=== PATIENT | female | born 1985 | race Two or more races ===

== ENCOUNTER 2018-10-19 09:22 | Emergency (ER) | payer BC, OTHER ==
[2018-10-19 09:32] VITALS: TEMP 97.9; BMI 30.7
[2018-10-19] MEDS ORDERED: ONDANSETRON 4 MG/2 ML VIAL IVPUSH ONE (09:59)
[2018-10-19] MEDS ORDERED: SODIUM CHLORIDE 1,000 ML IV STA (09:59)
[2018-10-19] MEDS ORDERED: ONDANSETRON 4 MG/2 ML VIAL ONE (10:03)
--- NOTE | 2018-10-19 10:03 | PDOC ---
History of Present Illness - General Chief Complaint: Nausea/Vomiting Stated Complaint: NAUSEA/VOMITING (9 WKS ) Time Seen by Provider: 10/19/18 09:48 History Source: Patient Exam Limitations: No Limitations - History of Present Illness Initial Comments: 10/19/18 10:03 CHIEF COMPLAINT: Vomiting HISTORY OF PRESENT ILLNESS: This is an otherwise healthy 33-year-old , 9 weeks by ultrasound, who presents with nausea and vomiting. She has been following with her fiber analyst, Dr. Starks, for this and has already tried Diclegis and Reglan without relief. She reports vomiting all food and fluids that she has attempted to take in since yesterday. She denies abdominal pain, vaginal bleeding, dysuria, fevers/chills, or any other symptoms. Vital signs on arrival are notable for pulse of 107. Patient is a nonsmoker. She does not drink any alcohol. She works for [employer] in the [place]. REVIEW OF SYSTEMS: GENERAL/CONSTITUTIONAL: No fever or chills. No weakness. No weight change. HEAD, EYES, EARS, NOSE AND THROAT: No change in vision. No ear pain or discharge. No sore throat. CARDIOVASCULAR: No chest pain or palpitations. RESPIRATORY: No cough, wheezing, or shortness of breath. GASTROINTESTINAL: See HPI. GENITOURINARY: No dysuria, frequency, or change in urination. MUSCULOSKELETAL: No joint or muscle swelling or pain. No neck or back pain. SKIN: No rash or easy bruising. NEUROLOGIC: No headache, vertigo, loss of consciousness, or loss of sensation. PSYCHIATRIC: No depression or anxiety. ENDOCRINE: No increased thirst. No abnormal weight change. HEMATOLOGIC/LYMPHATIC: No anemia, easy bleeding, or history of blood clots. ALLERGIC/IMMUNOLOGIC: No hives or skin allergy. No latex allergy. PHYSICAL EXAM: GENERAL: The patient is awake, alert, and fully oriented, in no acute distress. HEAD: Normal with no signs of trauma. ENT: Pupils equal, round and reactive to light, extraocular movements intact, sclera anicteric, conjunctiva clear. Neck supple. LUNGS: Clear to auscultation bilaterally. Normal excursion. No respiratory distress or use of accessory muscles. CV: RRR, mildly tachycardic, S1/S2, no MRG. Cap refill < 2 sec. ABDOMEN: Soft, gravid uterus palpable below umbilicus, non-tender. EXTREMITIES: Normal range of motion, no edema. NEUROLOGICAL: Normal speech, normal gait. CN II-XII grossly intact. PSYCH: Normal mood, normal affect. SKIN: Warm, dry, normal turgor, no rashes or lesions noted. Past History - Past Medical History Allergies/Adverse Reactions: Allergies Allergy/AdvReac Type Severity Reaction Status Date / Time No Known Allergies Allergy Unverified 10/19/18 09:30 Home Medications: Ambulatory Orders Ondansetron [Zofran -] 4 mg PO TID PRN #21 tablet 10/19/18 - Suicide/Smoking/Psychosocial Hx Smoking History: Never smoked Hx Alcohol Use: No Drug/Substance Use Hx: No *Physical Exam - Vital Signs Last Vital Signs Temp Pulse Resp BP Pulse Ox 97.9 F 107 H 16 119/83 99 10/19/18 09:30 10/19/18 09:30 10/19/18 09:30 10/19/18 09:30 10/19/18 09:30 Moderate Sedation - Procedure Monitoring Vital Signs: Procedure Monitoring Vital Signs Temperature 97.9 F 10/19/18 09:30 Pulse Rate 107 H 10/19/18 09:30 Respiratory Rate 16 10/19/18 09:30 Blood Pressure 119/83 10/19/18 09:30 O2 Sat by Pulse Oximetry (%) 99 10/19/18 09:30 ED Treatment Course - LABORATORY CBC & Chemistry Diagram: 10/19/18 10:00 10/19/18 09:59 Medical Decision Making - Medical Decision Making 10/19/18 10:09 A/P: 33-year-old female with nausea/vomiting of . 1. Labs including CBC, CMP, UA 2. Zofran 4mg IVPB, NS 1L bolus 3. Discuss w/ Dr. Starks 10/19/18 13:01 Labs unremarkable. Patient feeling well and tolerating PO. Discussed with Dr. Starks - will rx Zofran, patient to follow up in one week. Return precautions reviewed. *DC/Admit/Observation/Transfer Diagnosis at time of Disposition: Hyperemesis gravidarum - Discharge Dispostion Disposition: HOME Condition at time of disposition: Improved Decision to Admit order: No - Prescriptions Prescriptions: Ondansetron [Zofran -] 4 mg PO TID PRN #21 tablet PRN Reason: nausea/vomiting - Referrals Referrals: Cirilo Starks MD [Primary Care Provider] - 7 days - Patient Instructions Printed Discharge Instructions: DI for Hyperemesis Gravidarum Additional Instructions: -Rest and stay well-hydrated -Take Zofran as needed for nausea/vomiting -Slowly introduce a bland diet -Follow up with Dr. Starks in one week; if symptoms continue, speak with him about the possibility of a home nursing service -Return here for any new or concerning symptoms - Post Discharge Activity
[2018-10-19 10:12] LABS: BASO % 0.4 % (0-2.0); EOS % 1.2 % (0-4.5); HEMOGLOBIN 13.6 GM/dL (10.7-15.3); LYMPH % 20.9 % (8-40); MCH 30.9 pg (25.7-33.7); MCHC 34.9 g/dl (32.0-36.0); MEAN CELL VOLUME 88.6 fl (80-96); MEAN PLT VOLUME 9.9 fl (7.5-11.1); MONO % 7.9 % (3.8-10.2); NEUT % 69.6 % (42.8-82.8); PLATELET COUNT 187 K/MM3 (134-434); RDW 13.7 % (11.6-15.6); WHITE BLOOD COUNT 7.5 K/mm3 (4.0-10.0)
[2018-10-19 11:02] LABS: ALBUMIN 3.7 g/dl (3.4-5.0); ALK PHOS 57 U/L (45-117); ANION GAP 7 MMOL/L (8-16); BILIRUBIN,TOTAL 0.3 mg/dL (0.2-1); BLOOD UREA NITROGEN 7 mg/dL (7-18); CALCIUM 9.1 mg/dL (8.5-10.1); CHLORIDE 102 mmol/L (98-107); CO2 26 mmol/L (21-32); CREATININE 0.6 mg/dL (0.55-1.3); GLUCOSE,RANDOM 78 mg/dL (74-106); MAGNESIUM 2.1 mg/dL (1.8-2.4); POTASSIUM 3.8 mmol/L (3.5-5.1); SGOT/AST 14 U/L (15-37); SGPT/ALT 20 U/L (13-61); SODIUM 135 mmol/L (136-145); TOT PROT 7.3 g/dl (6.4-8.2)
[2018-10-19] MEDS ORDERED: SODIUM CHLORIDE 1,000 ML IV SCH (11:15)
[2018-10-19] MEDS ORDERED: ACETAMINOPHEN 325 MG TABLET (FP) ONE (13:13)
[2018-10-19] MEDS ORDERED: MECLIZINE HCL 12.5 MG TABLET ONE (13:14)
[2018-10-19 13:29] VITALS: BP 114/68; PULSE 92
== END 2018-10-19 13:29 | disposition home or self-care (01) ==
LOC: JER 09:22
PROC: 3E033GC Introduction of Other Therapeutic Substance into Peripheral Vein, Percutaneous Approach (ICD-10-PCS; principal; 2018-10-19)
DX: O26.891 Other specified pregnancy related conditions, first trimester (principal); O21.0 Mild hyperemesis gravidarum; Z3A.09 9 weeks gestation of pregnancy
CPT/HCPCS: 36415; 80053; 83735; 85025; 99282-25; J7030

== ENCOUNTER 2018-10-29 19:53 | Emergency (ER) | payer BC, OTHER ==
[2018-10-29 20:03] VITALS: TEMP 98.3; BMI 30.7
--- NOTE | 2018-10-29 20:43 | PDOC ---
History of Present Illness - History of Present Illness Initial Comments: 10/29/18 20:43 Ms. Santos is a 11 weeks 33 yo female w/ no significant pmh who presents for evaluation of 1 day history of nausea and vomiting. Patient reports this is similar to previous presentation 2 weeks ago. Patient has been taking diclegis TID proscribed by her TANK TESTER however reports minimal relief only. Denies any other symptoms at this time. The patient denies chest pain, shortness of breath, headache and dizziness. Denies fever, chills, diarrhea and constipation. Denies dysuria, frequency, urgency and hematuria. <Salvatore Robin - Last Filed: 10/30/18 00:22> <Benita Whyte - Last Filed: 10/30/18 01:40> - General Chief Complaint: Nausea/Vomiting Stated Complaint: 11 WEEKS , SICK Time Seen by Provider: 10/29/18 20:42 Past History - Past Medical History COPD: No - Suicide/Smoking/Psychosocial Hx Smoking History: Never smoked Have you smoked in the past 12 months: No Information on smoking cessation initiated: No Hx Alcohol Use: No Drug/Substance Use Hx: No <Salvatore Robin - Last Filed: 10/30/18 00:22> <Benita Whyte - Last Filed: 10/30/18 01:40> - Past Medical History Allergies/Adverse Reactions: Allergies Allergy/AdvReac Type Severity Reaction Status Date / Time No Known Allergies Allergy Unverified 10/19/18 09:30 Review of Systems - Review of Systems Comments:: 10/29/18 20:43 GENERAL/CONSTITUTIONAL: No fever or chills. No weakness. HEAD, EYES, EARS, NOSE AND THROAT: No change in vision. No ear pain or discharge. No sore throat. CARDIOVASCULAR: No chest pain or shortness of breath RESPIRATORY: No cough, wheezing, or hemoptysis. GASTROINTESTINAL: +Nausea and vomiting as described. No diarrhea or constipation. GENITOURINARY: No dysuria, frequency, or change in urination. MUSCULOSKELETAL: No joint or muscle swelling or pain. No neck or back pain. SKIN: No rash NEUROLOGIC: No headache, vertigo, loss of consciousness, or change in strength/ sensation. ENDOCRINE: No increased thirst. No abnormal weight change HEMATOLOGIC/LYMPHATIC: No anemia, easy bleeding, or history of blood clots. ALLERGIC/IMMUNOLOGIC: No hives or skin allergy. <Salvatore Robin - Last Filed: 10/30/18 00:22> *Physical Exam - Vital Signs Last Vital Signs Temp Pulse Resp BP Pulse Ox 98.3 F 98 H 16 124/82 100 10/29/18 20:01 10/29/18 20:01 10/29/18 20:01 10/29/18 20:01 10/29/18 20:01 - Physical Exam Comments: 10/29/18 20:43 GENERAL: Awake, alert, and fully oriented, in no acute distress HEAD: No signs of trauma, normocephalic, atraumatic EYES: PERRLA, EOMI, sclera anicteric, conjunctiva clear ENT: Auricles normal inspection, hearing grossly normal, nares patent, oropharynx clear without exudates. Moist mucosa NECK: Normal ROM, supple, no lymphadenopathy, JVD, or masses LUNGS: No distress, speaks full sentences, clear to auscultation bilaterally HEART: Regular rate and rhythm, normal S1 and S2, no murmurs, rubs or gallops, peripheral pulses normal and equal bilaterally. ABDOMEN: Soft, nontender, normoactive bowel sounds. No guarding, no rebound. No masses EXTREMITIES: Normal inspection, Normal range of motion, no edema. No clubbing or cyanosis. NEUROLOGICAL: Cranial nerves II through XII grossly intact. Normal speech, normal gait, no focal sensorimotor deficits SKIN: Warm, Dry, normal turgor, no rashes or lesions noted. <Salvatore Robin - Last Filed: 10/30/18 00:22> - Vital Signs Last Vital Signs Temp Pulse Resp BP Pulse Ox 98.3 F 86 20 128/80 100 10/29/18 20:01 10/29/18 23:09 10/29/18 23:09 10/29/18 23:09 10/29/18 23:09 <Benita Whyte - Last Filed: 10/30/18 01:40> Moderate Sedation - Procedure Monitoring Vital Signs: Procedure Monitoring Vital Signs Temperature 98.3 F 10/29/18 20:01 Pulse Rate 98 H 10/29/18 20:01 Respiratory Rate 16 10/29/18 20:01 Blood Pressure 124/82 10/29/18 20:01 O2 Sat by Pulse Oximetry (%) 100 10/29/18 20:01 <Salvatore Robin - Last Filed: 10/30/18 00:22> - Procedure Monitoring Vital Signs: Procedure Monitoring Vital Signs Temperature 98.3 F 10/29/18 20:01 Pulse Rate 86 10/29/18 23:09 Respiratory Rate 20 10/29/18 23:09 Blood Pressure 128/80 10/29/18 23:09 O2 Sat by Pulse Oximetry (%) 100 10/29/18 23:09 <Benita Whyte - Last Filed: 10/30/18 01:40> ED Treatment Course - LABORATORY CBC & Chemistry Diagram: 10/29/18 21:30 10/29/18 21:30 <Salvatore Robin - Last Filed: 10/30/18 00:22> - LABORATORY CBC & Chemistry Diagram: 10/29/18 21:30 10/29/18 21:30 - ADDITIONAL ORDERS Additional order review: Laboratory Results 10/29/18 10/29/18 21:45 21:30 Sodium 135 L Potassium 3.8 Chloride 102 Carbon Dioxide 25 Anion Gap 8 BUN 9 Creatinine 0.5 L Creat Clearance w eGFR > 60 Random Glucose 83 Calcium 8.9 Total Bilirubin 0.4 AST 15 ALT 20 Alkaline Phosphatase 53 Total Protein 7.3 Albumin 3.7 Urine Color Yellow Urine Appearance Clear Urine pH 5.0 Ur Specific Braman 1.027 Urine Protein 1+ H Urine Glucose (UA) Negative Urine Ketones 2+ H Urine Blood Negative Urine Nitrite Negative Urine Bilirubin Negative Urine Urobilinogen Negative Ur Leukocyte Esterase Negative Urine WBC (Auto) 3 Urine RBC (Auto) 1 Ur Epithelial Cells Rare Urine Bacteria Rare Urine Mucus Many 10/29/18 21:30 RBC 4.40 MCV 89.2 MCHC 35.0 RDW 13.5 MPV 10.0 Neutrophils % 80.5 Lymphocytes % 13.6 D Monocytes % 4.9 Eosinophils % 0.7 Basophils % 0.3 - Medications Given in the ED: ED Medications Discontinued Medications Generic Name Dose Route Start Last Admin Trade Name Freq PRN Reason Stop Dose Admin Sodium Chloride 1,000 mls @ 1,000 mls/hr 10/29/18 20:50 10/29/18 21:15 Normal Saline - IV 10/29/18 21:49 1,000 mls/hr ASDIR STA Administration Metoclopramide HCl 10 mg 10/29/18 20:50 10/29/18 21:20 Reglan Injection - IVPUSH 10/29/18 20:51 10 mg ONCE ONE Administration Ondansetron HCl 4 mg 10/30/18 00:27 10/30/18 01:06 Zofran Injection IVPUSH 10/30/18 00:28 4 mg ONCE ONE Administration <Benita Whyte - Last Filed: 10/30/18 01:40> Medical Decision Making - Medical Decision Making 10/29/18 22:24 Ms. Santos is a 33 yo female w/ pmh as described who presents for evaluation of symptoms concerning for hyperemesis gravidarum. Patient otherwise well appearing however reports she has not been able to keep food down since last night. Workup started with CBC/CMP/UA/Urine culture and US as well as 1L NS. Labs significant for ketones in urine as below. D5LR 2L added on accordingly. 10/29/18 23:28 US negative for acute process. Patient currently receiving hydration. 10/30/18 00:22 Patient alert and oriented with relief from symptoms. Discharging to home. Laboratory Results - last 24 hr 10/29/18 10/29/18 10/29/18 21:30 21:30 21:45 WBC 9.2 RBC 4.40 Hgb 13.7 Hct 39.3 MCV 89.2 MCH 31.2 MCHC 35.0 RDW 13.5 Plt Count 174 MPV 10.0 Absolute Neuts (auto) 7.4 Neutrophils % 80.5 Lymphocytes % 13.6 D Monocytes % 4.9 Eosinophils % 0.7 Basophils % 0.3 Nucleated RBC % 0 Sodium 135 L Potassium 3.8 Chloride 102 Carbon Dioxide 25 Anion Gap 8 BUN 9 Creatinine 0.5 L Creat Clearance w eGFR > 60 Random Glucose 83 Calcium 8.9 Total Bilirubin 0.4 AST 15 ALT 20 Alkaline Phosphatase 53 Total Protein 7.3 Albumin 3.7 Urine Color Yellow Urine Appearance Clear Urine pH 5.0 Ur Specific Braman 1.027 Urine Protein 1+ H Urine Glucose (UA) Negative Urine Ketones 2+ H Urine Blood Negative Urine Nitrite Negative Urine Bilirubin Negative Urine Urobilinogen Negative Ur Leukocyte Esterase Negative Urine WBC (Auto) 3 Urine RBC (Auto) 1 Ur Epithelial Cells Rare Urine Bacteria Rare Urine Mucus Many <Salvatore Robin Last Filed: 10/30/18 00:22> *DC/Admit/Observation/Transfer <Salvatore Robin - Last Filed: 10/30/18 00:22> - Discharge Dispostion Decision to Admit order: No <Benita Whyte - Last Filed: 10/30/18 01:40> Diagnosis at time of Disposition: Hyperemesis gravidarum - Discharge Dispostion Disposition: HOME Condition at time of disposition: Stable - Patient Instructions Printed Discharge Instructions: DI for Hyperemesis Gravidarum Additional Instructions: You were evaluated today in the ER for your nausea and vomiting. We hydrated you with 1 L normal saline and 2 L D5/LR fluid. No concerning findings were found at this time. Please follow-up with TANK TESTER later this week for further evaluation. Return to ER if any fever, chills, inability to tolerate food/drink , or other concerning symptoms.
[2018-10-29] MEDS ORDERED: METOCLOPRAMIDE HCL INJECTION 10 MG/2 ML VIAL IVPUSH ONE (20:50)
[2018-10-29] MEDS ORDERED: SODIUM CHLORIDE 1,000 ML IV STA (20:50)
[2018-10-29] MEDS ORDERED: METOCLOPRAMIDE HCL INJECTION 10 MG/2 ML VIAL ONE (21:20)
[2018-10-29 21:48] LABS: BASO % 0.3 % (0-2.0); EOS % 0.7 % (0-4.5); HEMATOCRIT 39.3 % (32.4-45.2); HEMOGLOBIN 13.7 GM/dL (10.7-15.3); LYMPH % 13.6 % (8-40); MCH 31.2 pg (25.7-33.7); MEAN CELL VOLUME 89.2 fl (80-96); MONO % 4.9 % (3.8-10.2); NEUT % 80.5 % (42.8-82.8); PLATELET COUNT 174 K/MM3 (134-434); RDW 13.5 % (11.6-15.6); WHITE BLOOD COUNT 9.2 K/mm3 (4.0-10.0)
[2018-10-29 21:53] LABS: URINE APPEARANCE CLEAR; URINE BILIRUBIN NEGATIVE (<2.0 mg/dL); URINE COLOR YELLOW; URINE GLUCOSE (UA) NEGATIVE (NEGATIVE); URINE KETONE 2+ (NEGATIVE); URINE LEUK ESTERASE NEGATIVE (NEGATIVE); URINE NITRITE NEGATIVE (NEGATIVE); URINE PROTEIN 1+ (NEGATIVE); URINE UROBILINOGEN NEGATIVE mg/dL (0.2-1.0)
[2018-10-29 22:06] LABS: EPI CELLS RARE /HPF (FEW); URINE BACTERIA RARE /hpf (NONE SEEN); URINE MUCUS MANY
[2018-10-29 22:08] LABS: ALBUMIN 3.7 g/dl (3.4-5.0); ALK PHOS 53 U/L (45-117); ANION GAP 8 MMOL/L (8-16); BILIRUBIN,TOTAL 0.4 mg/dL (0.2-1); BLOOD UREA NITROGEN 9 mg/dL (7-18); CALCIUM 8.9 mg/dL (8.5-10.1); CHLORIDE 102 mmol/L (98-107); CO2 25 mmol/L (21-32); CREATININE 0.5 mg/dL (0.55-1.3); GLUCOSE,RANDOM 83 mg/dL (74-106); POTASSIUM 3.8 mmol/L (3.5-5.1); SGOT/AST 15 U/L (15-37); SGPT/ALT 20 U/L (13-61); SODIUM 135 mmol/L (136-145); TOT PROT 7.3 g/dl (6.4-8.2)
--- NOTE | 2018-10-29 22:17 | PDOC ---
Attending Attestation - Resident Resident Name: Salvatore Robin - ED Attending Attestation I have performed the following: I have examined & evaluated the patient, The case was reviewed & discussed with the resident, I agree w/resident's findings & plan - Medical Decision Making 10/29/18 22:37 Patient Name: GEORGETTE VAZQUEZ THIS IS A PRELIMINARY REPORT FROM IMAGING LITHOGRAPHIC PHOTOGRAPHER APPRENTICE DATE OF SERVICE: 2018-10-29 21:45:53 IMAGES: 53 EXAM: <14WKS US HISTORY: with nausea and vomiting COMPARISON: None. FINDINGS: There is a single live intrauterine gestation with heart rate averaging 153 bpm. Approximate age by composite ultrasound measurements is 11 weeks, 1 day A yolk sac is present Amniotic fluid volume is subjectively adequate No evidence of subchorionic hemorrhage Normal ovaries without evidence of torsion No adnexal masses visualized No free fluid <Benita Whyte - Last Filed: 10/29/18 22:37> - HPI HPI: 10/29/18 22:17 The patient is a 33 year old 11 weeks female , with no significant past medical history, who presents to the emergency department with, 1 day of nausea and vomiting. As per patient, she was seen in the ER 2 weeks ago for similar symptoms. She notes her PREDATORY ANIMAL TRAPPER prescribed diclegis TID, with minimal relief prompting her visit to the ER. She denies recent fevers, chills, headache or dizziness. She denies recent diarrhea or constipation. She denies recent dysuria, frequency, urgency or hematuria. She denies recent chest pain or shortness of breath. Allergies: NKDA PREDATORY ANIMAL TRAPPER: Dr. Starks - Physicial Exam PE: 10/29/18 23:29 GENERAL: Awake, alert, and fully oriented, in no acute distress HEAD: No signs of trauma ENT: Auricles normal inspection, hearing grossly normal, nares patent, oropharynx clear without exudates. Moist mucosa NECK: Normal ROM, supple, no lymphadenopathy, JVD, or masses LUNGS: Breath sounds equal, clear to auscultation bilaterally. No wheezes, and no crackles HEART: Regular rate and rhythm, normal S1 and S2, no murmurs, rubs or gallops ABDOMEN: Soft, nontender, normoactive bowel sounds. No guarding, no rebound. No masses EXTREMITIES: Normal range of motion, no edema. No clubbing or cyanosis. No cords, erythema, or tenderness NEUROLOGICAL: Cranial nerves II through XII grossly intact. Normal speech, normal gait SKIN: Warm, Dry, normal turgor, no rashes or lesions noted. - Medical Decision Making 10/29/18 22:31 EXAM: <14WKS US HISTORY: with nausea and vomiting COMPARISON: None. FINDINGS: There is a single live intrauterine gestation with heart rate averaging 153 bpm. Approximate age by composite ultrasound measurements is 11 weeks, 1 day A yolk sac is present Amniotic fluid volume is subjectively adequate No evidence of subchorionic hemorrhage Normal ovaries without evidence of torsion No adnexal masses visualized No free fluid Read by: Montana Walton MD <Gómez Woods - Last Filed: 10/29/18 23:29> Attestations - Attestations 10/29/18 22:17 Documentation prepared by Gómez Woods, acting as medical management specialist for Benita Whyte MD. <Gómez Woods - Last Filed: 10/29/18 23:29>
[2018-10-29] MEDS ORDERED: DEXTROSE 5%-LACTATED RINGERS 1,000 ML IV SCH ×2 (22:30)
[2018-10-29 23:12] VITALS: BP 128/80; PULSE 86
[2018-10-30] MEDS ORDERED: ONDANSETRON 4 MG/2 ML VIAL IVPUSH ONE (00:27)
[2018-10-30] MEDS ORDERED: ONDANSETRON 4 MG/2 ML VIAL ONE (01:04)
== END 2018-10-30 01:46 | disposition home or self-care (01) ==
LOC: JER 19:53
PROC: 3E033GC Introduction of Other Therapeutic Substance into Peripheral Vein, Percutaneous Approach (ICD-10-PCS; principal; 2018-10-29)
PROC: 3E0337Z Introduction of Electrolytic and Water Balance Substance into Peripheral Vein, Percutaneous Approach (ICD-10-PCS; 2018-10-29)
DX: O26.891 Other specified pregnancy related conditions, first trimester (principal); Z3A.11 11 weeks gestation of pregnancy; O21.0 Mild hyperemesis gravidarum
CPT/HCPCS: 36415; 76801-TC; 80053; 81003; 81015; 85025; 87086; 99284-25; J7030

== ENCOUNTER 2018-11-08 12:45 | Emergency (ER) | payer BC, OTHER ==
[2018-11-08 12:48] VITALS: TEMP 97.3; BMI 29.9
--- NOTE | 2018-11-08 13:33 | PDOC ---
History of Present Illness - General Chief Complaint: Nausea/Vomiting Stated Complaint: NAUSEA/VOMITING (12 WKS PREG) Time Seen by Provider: 11/08/18 13:30 History Source: Patient Exam Limitations: No Limitations - History of Present Illness Initial Comments: Pt is a 33 yo F, with PMH of ASD (corrective heart surgery age 10), G1PO (@12 weeks), who is presenting with complaints of nausea and NBNB emesis, which has worsened over the past 5 days. Pt states she has been to her OB and multiple ERs ([place], [facility], urgent care) over the past few days, and has been treated with IV hydration and anti-emetic medications. Pt has tried Diclegis, reglan, and zofran at home, but has not been able to keep it down. Pt has not been able to eat or drink since yesterday without vomiting. Pt states the vomiting has been associated with palpitations, but no LOC. Pt states she has been constipated for a few days, but that has been going on over the past few weeks with the . Pt denies any fevers/chills, headache, vision changes, syncope, chest pain, SOB, abdominal pain, vaginal discharge/vaginal bleeding, urinary symptoms, diarrhea, or leg swelling. Social: Pt denies any cigarette, alcohol, or drug use. Pt denies any recent travel or sick contacts. Surgical: cardiac, ASD repair. Family: no relevant history. 11/08/18 14:19 Past History - Travel Traveled outside of the country in the last 30 days: No Close contact w/someone who was outside of country & ill: No - Past Medical History Allergies/Adverse Reactions: Allergies Allergy/AdvReac Type Severity Reaction Status Date / Time No Known Allergies Allergy Unverified 11/08/18 12:48 Home Medications: Ambulatory Orders Ondansetron [Zofran Odt -] 4 mg GT BID PRN #20 tab.rapdis 11/08/18 Cardiac Disorders: Yes (ASD) Hx Myocardial Infarction: No Diabetes: No GI Disorders: No HTN: No Hypercholesterolemia: No Seizures: No - Surgical History Cardiac Surgery: Yes - Suicide/Smoking/Psychosocial Hx Smoking History: Never smoked Have you smoked in the past 12 months: No Hx Alcohol Use: No Drug/Substance Use Hx: No Review of Systems - Review of Systems Able to Perform ROS?: Yes Is the patient limited Latvian proficient: No Constitutional: Yes: Weight Stable. No: Chills, Diaphoresis, Fever, Loss of Appetite, Malaise HEENTM: No: Blurred Vision, Double Vision, Nose Congestion, Throat Swelling Respiratory: No: Cough, Shortness of Breath Cardiac (ROS): Yes: See HPI, Palpitations. No: Chest Pain, Edema, Irregular Heart Rate, Lightheadedness, Syncope, Chest Tightness ABD/GI: Yes: See HPI, Constipated, Nausea, Poor Appetite, Poor Fluid Intake, Vomiting. No: Diarrhea, Indigestion, Abdominal cramping : No: Burning, Dysuria, Discharge, Frequency, Flank Pain, Hematuria, Incontinence, Pain, Urgency Musculoskeletal: No: Back Pain, Joint Pain Integumentary: No: Rash Neurological: No: Headache, Numbness, Seizure, Tremors, Weakness, Unsteady Gait , Ataxia, Dizziness Psychiatric: No: Sleep Pattern Change, Change in Appetite Endocrine: No: Increased Urine, Change in Weight Hematologic/Lymphatic: No: Anemia, Blood Clots, Easy Bleeding, Easy Bruising All Other Systems: Reviewed and Negative *Physical Exam - Vital Signs Last Vital Signs Temp Pulse Resp BP Pulse Ox 97.3 F L 88 18 120/81 97 11/08/18 12:45 11/08/18 12:45 11/08/18 12:45 11/08/18 12:45 11/08/18 12:45 - Physical Exam General Appearance: Yes: Nourished, Appropriately Dressed. No: Apparent Distress HEENT: positive: EOMI, KRISTINA, Normal ENT Inspection, Normal Voice, Pharynx Normal , Hearing Grossly Normal. negative: Scleral Icterus (R), Scleral Icterus (L), Pharyngeal Erythema, Tonsillar Exudate, Tonsillar Erythema, Nasal Congestion, Rhinorrhea Neck: positive: Trachea midline, Normal Thyroid, Supple. negative: Tender, Rigid, Lymphadenopathy (R), Lymphadenopathy (L), Rigidity Respiratory/Chest: positive: Lungs Clear, Normal Breath Sounds. negative: Chest Tender, Respiratory Distress, Accessory Muscle Use, Crackles, Wheezing Cardiovascular: positive: Regular Rhythm, Regular Rate, S1, S2. negative: Edema , JVD, Murmur Vascular Pulses: Carotid (R): 4+, Carotid (L): 4+ Gastrointestinal/Abdominal: positive: Normal Bowel Sounds, Soft, Protuberent ( , fundal height appropriate). negative: Tender, Flat, Organomegaly, Pulsatile Mass, Distended, Guarding, Rebound Rectal Exam: positive: deferred Lymphatic: negative: Adenopathy, Tenderness Musculoskeletal: positive: Normal Inspection. negative: CVA Tenderness Extremity: positive: Normal Capillary Refill, Normal Inspection, Normal Range of Motion, Pelvis Stable. negative: Tender, Pedal Edema, Calf Tenderness Integumentary: positive: Normal Color, Dry, Warm. negative: Jaundice, Clammy, Diaphoresis, Rash, Other (no decreased skin turgor, moist oral mucosa) Neurologic: positive: [employer] II-XII NML intact, Fully Oriented, Alert, Normal Mood/ Affect, Normal Response, Motor Strength 5/5 Moderate Sedation - Procedure Monitoring Vital Signs: Procedure Monitoring Vital Signs Temperature 97.3 F L 11/08/18 12:45 Pulse Rate 88 11/08/18 12:45 Respiratory Rate 18 11/08/18 12:45 Blood Pressure 120/81 11/08/18 12:45 O2 Sat by Pulse Oximetry (%) 97 11/08/18 12:45 ED Treatment Course - LABORATORY CBC & Chemistry Diagram: 11/08/18 14:09 11/08/18 14:09 Medical Decision Making - Medical Decision Making Pt was seen at bedside, also will be seen by attending Dr. Thomas. Pt presenting with complaints of nausea and NBNB emesis, which has worsened over the past 5 days. Pt states she has been to her OB and multiple ERs ([place], [facility], urgent care) over the past few days, and has been treated with IV hydration and anti- emetic medications. Pt has tried Diclegis, reglan, and zofran at home, but has not been able to keep it down. Pt has not been able to eat or drink since yesterday without vomiting. Pt states the vomiting has been associated with palpitations, but no LOC. Pt states she has been constipated for a few days, but that has been going on over the past few weeks with the . Pt denies any fevers/chills, headache, vision changes, syncope, chest pain, SOB, abdominal pain, vaginal discharge/vaginal bleeding, urinary symptoms, diarrhea, or leg swelling. Vitals stable, afebrile. PE showed clear heart and lung sounds, not tachycardic on exam, normal extremity pulses. No abdominal or CVA tenderness, fundal height appropriate for age. Oral mucosa moist, no decreased skin turgor (likely from recent IV hydration). Benign PE. Considering hyperemesis gravidum vs viral/bacterial enteritis vs obstruction. Limited concern for viral illness, as pt afebrile, no diarrhea or other associated symptoms. Pt is also constipated, but more likely hyperemesis vs obstruction, with constipation likely 2/2 . Ordered work-up including CBC, CMP, Mg, UA, and urine culture. Provided 1 L IV NS and 4 mg IV zofran for improvement of nausea and decreased PO tolerance. Will continue to reassess pt and monitor for symptomatic improvement. 11/08/18 13:44 Labs sent and pending. Pt providing urine for UA. 11/08/18 14:18 CBC and CMP generally WNL. UA: 2+ ketones, no urinary tract infection. Pt has had no further emesis since receiving the zofran. 11/08/18 15:07 Pt still complaining of nausea. Providing additional 4 mg IV zofran. Will challenge pt with PO fluid intake. 11/08/18 15:43 Pt improved after second dose of zofran, able to tolerate PO fluid intake. Sent 4 mg ODT zofran to pt pharmacy. Considering normal lab results, pt can be discharged to home with follow-up. Pt advised to follow-up with PCP and OB in 1-2 days. Strict return precautions provided with pt understanding. 11/08/18 16:16 *DC/Admit/Observation/Transfer Diagnosis at time of Disposition: Hyperemesis gravidarum - Discharge Dispostion Disposition: HOME Condition at time of disposition: Improved Decision to Admit order: No - Prescriptions Prescriptions: Ondansetron [Zofran Odt -] 4 mg GT BID PRN #20 tab.rapdis PRN Reason: Nausea And/Or Vomiting - Referrals - Patient Instructions Printed Discharge Instructions: DI for Hyperemesis Gravidarum Additional Instructions: You were seen in the ER today for nausea and vomiting. The results of your labs and imaging today were normal. Please follow-up with your primary care doctor and [facility] within 1-2 days to discuss your visit and make sure your symptoms have improved. Please return to the ER if you have any abdominal pain/cramping or vaginal bleeding, development of fevers or chills, loss of consciousness, palpitations, inability to tolerate food or fluids, or any other concerns. I have sent zofran tablets for nausea which you can place under the tongue ( instead of swallowing the pill). This pill should help with your nausea. Please also attempt to continue with fluids (gatorade, pedialyte) and bland food as tolerated. Print Language: KHMER - Post Discharge Activity
[2018-11-08] MEDS ORDERED: ONDANSETRON 4 MG/2 ML VIAL IVPUSH ONE ×2 (13:44→15:29)
[2018-11-08] MEDS ORDERED: SODIUM CHLORIDE 1,000 ML IV STA (13:44)
[2018-11-08 14:35] LABS: URINE APPEARANCE SLCLOUDY; URINE BILIRUBIN NEGATIVE (<2.0 mg/dL); URINE COLOR AMBER; URINE GLUCOSE (UA) NEGATIVE (NEGATIVE); URINE KETONE 2+ (NEGATIVE); URINE LEUK ESTERASE NEGATIVE (NEGATIVE); URINE NITRITE NEGATIVE (NEGATIVE); URINE PROTEIN 1+ (NEGATIVE); URINE UROBILINOGEN 4.0 E.U/dl mg/dL (0.2-1.0)
[2018-11-08 14:44] LABS: BASO % 0.2 % (0-2.0); EOS % 1.1 % (0-4.5); HEMATOCRIT 38.7 % (32.4-45.2); HEMOGLOBIN 13.4 GM/dL (10.7-15.3); LYMPH % 12.7 % (8-40); MCH 30.6 pg (25.7-33.7); MCHC 34.5 g/dl (32.0-36.0); MEAN CELL VOLUME 88.6 fl (80-96); MONO % 5.8 % (3.8-10.2); NEUT % 80.2 % (42.8-82.8); PLATELET COUNT 183 K/MM3 (134-434); RBC 4.37 M/mm3 (3.60-5.2); RDW 13.5 % (11.6-15.6)
[2018-11-08 14:46] LABS: ALBUMIN 3.5 g/dl (3.4-5.0); ALK PHOS 52 U/L (45-117); ANION GAP 7 MMOL/L (8-16); BILIRUBIN,TOTAL 0.5 mg/dL (0.2-1); BLOOD UREA NITROGEN 7 mg/dL (7-18); CHLORIDE 102 mmol/L (98-107); CO2 26 mmol/L (21-32); CREATININE 0.5 mg/dL (0.55-1.3); GLUCOSE,RANDOM 78 mg/dL (74-106); MAGNESIUM 2.2 mg/dL (1.8-2.4); POTASSIUM 3.7 mmol/L (3.5-5.1); SGOT/AST 12 U/L (15-37); SGPT/ALT 22 U/L (13-61); SODIUM 135 mmol/L (136-145); TOT PROT 7.3 g/dl (6.4-8.2)
[2018-11-08 14:48] LABS: EPI CELLS RARE /HPF (FEW); URINE BACTERIA RARE /hpf (NONE SEEN); URINE MUCUS MANY
--- NOTE | 2018-11-08 15:08 | PDOC ---
Attending Attestation - Resident Resident Name: Mariia Ulloa - ED Attending Attestation I have performed the following: I have examined & evaluated the patient, The case was reviewed & discussed with the resident, I agree w/resident's findings & plan, Exceptions are as noted - HPI HPI: 11/08/18 15:06 The patient is a 33 year old female, , @ 12 weeks by ultrasound, with a significant PMH of ASD s/p repair as a child, who presents to the emergency department with five day history of nausea and vomiting. Patient states that she has visited multiple hospitals for hyperemesis gravidarum and has only had relief of her symptoms after IV meds. She has been discharged on reglan, zofran , and diclegis, but reports persistent nausea after taking PO meds. Patient also tried eating crackers today but vomited immediately after. The patient denies chest pain, shortness of breath, headache and dizziness. Denies fever, chills, abdominal pain, diarrhea and constipation. Denies dysuria, frequency, urgency and hematuria. Allergies: NKA Past surgical history: None reported. Social history: No reported alcohol, drug or cigarette use. - Physicial Exam PE: 11/08/18 15:08 "GENERAL: Awake, alert, and fully oriented, in no acute distress. HEAD: No signs of trauma EYES: PERRLA, EOMI, sclera anicteric, conjunctiva clear ENT: Auricles normal inspection, hearing grossly normal, nares patent, oropharynx clear without exudates. Moist mucosa NECK: Nontender, no stepoffs, Normal ROM, supple, no lymphadenopathy, JVD, or masses LUNGS: Breath sounds equal, clear to auscultation bilaterally. No wheezes, and no crackles HEART: Regular rate and rhythm, normal S1 and S2, no murmurs, rubs or gallops ABDOMEN: Soft, nontender, normoactive bowel sounds. No guarding, no rebound. No masses EXTREMITIES: Normal range of motion, no edema. No clubbing or cyanosis. No cords, erythema, or tenderness NEUROLOGICAL: Cranial nerves II through XII intact. 5/5 strength and sensation in all extremities, Normal speech, normal gait, normal cerebellar function SKIN: Warm, Dry, normal turgor, no rashes or lesions noted. - Medical Decision Making 11/08/18 15:08 33 F with hyperemesis gravidarum. Pt with benign abdomen. No fevers or other signs of infectious process. No abdominal tenderness on exam. - Labs - IVF, zofran 11/08/18 16:26 Labs wnl Pt reassessed after IVF and zofran, now able to tolerate PO fluids Pt is well appearing, with normal vitals. Clinically stable for DC at this time. I discussed the physical exam findings, ancillary test results and final diagnoses with the patient. I answered all of the patient's questions. The patient was satisfied with the care received and felt comfortable with the discharge plan and treatment plan. The patient agrees to follow up with the primary care physician within 24-72 hours.
[2018-11-08] MEDS ORDERED: ONDANSETRON 4 MG/2 ML VIAL ONE (15:44)
[2018-11-08 15:55] VITALS: BP 122/86; PULSE 86
== END 2018-11-08 16:28 | disposition home or self-care (01) ==
LOC: JER 12:45
PROC: 3E033GC Introduction of Other Therapeutic Substance into Peripheral Vein, Percutaneous Approach (ICD-10-PCS; principal; 2018-11-08)
PROC: 3E0337Z Introduction of Electrolytic and Water Balance Substance into Peripheral Vein, Percutaneous Approach (ICD-10-PCS; 2018-11-08)
DX: O26.891 Other specified pregnancy related conditions, first trimester (principal); Z3A.12 12 weeks gestation of pregnancy; O21.0 Mild hyperemesis gravidarum
CPT/HCPCS: 36415; 80053; 81003; 81015; 83735; 85025; 86850; 86900; 86901; 87086; 99282-25; J7030